=== PATIENT | female | born 1985 | race Caucasian/White ===

== ENCOUNTER → 2023-10-01 08:08 | Outpatient (REF) | payer BC, SELFPAY | LOC: PNTC 08:08 | PROVIDERS: ATTENDING PHYSICIAN Obstetrics & Gynecology | DX: O99.210 Obesity complicating pregnancy, unspecified trimester (principal); O09.519 Supervision of elderly primigravida, unspecified trimester; O35.5XX0 Maternal care for (suspected) damage to fetus by drugs, not applicable or unspecified | CPT/HCPCS: 76811 ==

== ENCOUNTER → 2023-11-26 09:11 | Outpatient (REF) | payer BC, SELFPAY | LOC: PNTC 09:11 | PROVIDERS: ATTENDING PHYSICIAN Obstetrics & Gynecology | DX: O99.210 Obesity complicating pregnancy, unspecified trimester (principal); O35.5XX0 Maternal care for (suspected) damage to fetus by drugs, not applicable or unspecified | CPT/HCPCS: 76816 ==

== ENCOUNTER → 2024-01-07 08:39 | Outpatient (REF) | payer BC, SELFPAY | LOC: PNTC 08:39 | PROVIDERS: ATTENDING PHYSICIAN Obstetrics & Gynecology | DX: O99.210 Obesity complicating pregnancy, unspecified trimester (principal); O35.5XX0 Maternal care for (suspected) damage to fetus by drugs, not applicable or unspecified | CPT/HCPCS: 59025; 76816 ==

== ENCOUNTER → 2024-01-14 07:29 | Outpatient (REF) | payer BC, SELFPAY | LOC: PNTC 07:29 | PROVIDERS: ATTENDING PHYSICIAN Obstetrics & Gynecology | DX: O99.210 Obesity complicating pregnancy, unspecified trimester (principal); O09.529 Supervision of elderly multigravida, unspecified trimester | CPT/HCPCS: 59025; 76815 ==

== ENCOUNTER → 2024-01-21 13:35 | Outpatient (REF) | payer BC, SELFPAY | LOC: PNTC 13:35 | PROVIDERS: ATTENDING PHYSICIAN Obstetrics & Gynecology | DX: O99.210 Obesity complicating pregnancy, unspecified trimester (principal); O09.519 Supervision of elderly primigravida, unspecified trimester | CPT/HCPCS: 59025; 76815 ==

== ENCOUNTER → 2024-01-28 08:00 | Outpatient (REF) | payer BC, SELFPAY | LOC: PNTC 08:00 | PROVIDERS: ATTENDING PHYSICIAN Obstetrics & Gynecology | DX: O09.519 Supervision of elderly primigravida, unspecified trimester (principal); O99.210 Obesity complicating pregnancy, unspecified trimester | CPT/HCPCS: 59025; 76815 ==

== ENCOUNTER → 2024-02-04 08:01 | Outpatient (REF) | payer BC, SELFPAY | LOC: PNTC 08:01 | PROVIDERS: ATTENDING PHYSICIAN Obstetrics & Gynecology | DX: O09.519 Supervision of elderly primigravida, unspecified trimester (principal); O09.219 Supervision of pregnancy with history of pre-term labor, unspecified trimester | CPT/HCPCS: 59025; 76816 ==

== ENCOUNTER → 2024-02-11 07:59 | Outpatient (REF) | payer BC, SELFPAY | LOC: PNTC 07:59 | PROVIDERS: ATTENDING PHYSICIAN Obstetrics & Gynecology | DX: O99.210 Obesity complicating pregnancy, unspecified trimester (principal); O09.519 Supervision of elderly primigravida, unspecified trimester | CPT/HCPCS: 59025; 76815 ==

== ENCOUNTER 2024-02-15 17:47 | Observation (INO) | payer BC, SELFPAY ==
[2024-02-15 17:55] VITALS: BP 143/86; BMI 40.8
== END 2024-02-15 18:48 | disposition home or self-care (01) ==
LOC: LDRP 17:47
PROVIDERS: ADMITTING PHYSICIAN Obstetrics & Gynecology; FAMILY PHYSICIAN Family Medicine
DX: O36.8130 Decreased fetal movements, third trimester, not applicable or unspecified (principal); Z3A.39 39 weeks gestation of pregnancy
CPT/HCPCS: G0378

== ENCOUNTER → 2024-02-18 09:04 | Outpatient (REF) | payer BC, SELFPAY | LOC: PNTC 09:04 | PROVIDERS: ATTENDING PHYSICIAN Obstetrics & Gynecology | DX: O99.210 Obesity complicating pregnancy, unspecified trimester (principal); O09.519 Supervision of elderly primigravida, unspecified trimester | CPT/HCPCS: 59025; 76815 ==

== ENCOUNTER 2024-02-19 08:31 | Inpatient (IN) | payer BC, SELFPAY ==
[2024-02-19 08:42] VITALS: BP 145/86; BMI 41.4
[2024-02-19] MEDS: CYTOTEC 25 MICROGRAM VAG (11:09)
[2024-02-19 11:18] LABS: % Basophils 0.3 % (0-2); % Eosinophils 1.6 % (0-6); % Immature Granulocytes 0.5 % (0-0.5); % Lymphocytes 17.3 % (20.5-51.1); % Monocytes 5.9 % (1.7-9.3); % Neutrophils 74.4 % (42.2-75.2); Absolute Eosinophils 0.1 10^3/uL (0-0.7); Absolute Lymphocytes 1.3 10^3/uL (1.2-3.4); Absolute Monocytes 0.5 10^3/uL (0.1-0.6); Absolute Neutrophils 5.6 10^3/uL (1.4-6.5); Hemoglobin 10.9 g/dL (12.0-16.0); Mean Corp Hgb Conc. 34.1 g/dL (33.0-37.0); Mean Corpuscular Hgb 28.9 pg (27.0-31.0); Mean Corpuscular Volume 84.9 fL (81.0-99.0); Mean Platelet Volume 9.8 fL (7.4-10.4); Nucleated Red Blood Cells % 0 %; Platelet Count 242 10^3/uL (130-400); Red Blood Cell Count 3.77 10^6/uL (4.20-5.40); Red Cell Dist. Width 14.8 % (11.5-14.5); White Blood Cell Count 7.6 10^3/uL (4.8-10.8)
[2024-02-19] MEDS: CYTOTEC 50 MICROGRAM PO ×3 (15:10→23:18)
[2024-02-20] MEDS: CYTOTEC 50 MICROGRAM PO (02:54)
[2024-02-20] MEDS: MORPHINE SULFATE 2 MG IV ×4 (06:08→17:56)
[2024-02-20] MEDS: CYTOTEC PO ×2 (11:09→14:37)
[2024-02-20] MEDS: LR 1000 IV ×3 (11:09→17:56)
[2024-02-20] MEDS: PITOCIN 30 UNITS/NSS 500 ML IV (11:10)
[2024-02-20] MEDS: FENTANYL/BUPIVACAINE 100 EPIDURAL (19:30)
[2024-02-20] MEDS: SUBLIMAZE 100 MCG EPIDURAL (19:30)
[2024-02-20] MEDS: ZOFRAN 4 MG IV (21:57)
[2024-02-21] MEDS: FENTANYL/BUPIVACAINE 100 EPIDURAL ×2 (02:45→09:46)
[2024-02-21] MEDS: LR 1000 IV (07:00)
[2024-02-21] MEDS: PRENATAL PLUS 1 TABLET PO (12:01)
[2024-02-21] MEDS: MOTRIN 600 MG PO ×2 (12:01→20:43)
[2024-02-21] MEDS: METHERGINE INJECTION 0.200000000000000011 MG IM (12:37)
[2024-02-22] MEDS: MOTRIN 600 MG PO ×2 (04:40→12:25)
[2024-02-22 04:56] LABS: Hematocrit 24.8 % (37.0-47.0); Hemoglobin 8.7 g/dL (12.0-16.0)
[2024-02-22] MEDS: TYLENOL 650 MG PO (06:04)
[2024-02-22] MEDS: SENOKOT-S 1 TABLET PO (12:25)
[2024-02-22] MEDS: PRENATAL PLUS PO (12:26)
[2024-02-22] MEDS: FEOSOL 325 MG PO (20:18)
[2024-02-23] MEDS: FEOSOL 325 MG PO (08:55)
[2024-02-23] MEDS: SENOKOT-S 1 TABLET PO (08:55)
[2024-02-23] MEDS: PRENATAL PLUS 1 TABLET PO (08:55)
[2024-02-23] MEDS: MOTRIN 600 MG PO (09:02)
[2024-02-23 09:57] LABS: Syphilis/T. pallidum Ab Reflex Negative (Negative)
== END 2024-02-23 12:30 | disposition home or self-care (01) | DRG 806 ==
LOC: LDRP 08:31
PROVIDERS: Obstetrics & Gynecology; ADMITTING PHYSICIAN Obstetrics & Gynecology; FAMILY PHYSICIAN Family Medicine
PROC: 3E033VJ Introduction of Other Hormone into Peripheral Vein, Percutaneous Approach (ICD-10-PCS; 2024-02-19)
PROC: 3E0P7VZ Introduction of Hormone into Female Reproductive, Via Natural or Artificial Opening (ICD-10-PCS; 2024-02-19)
PROC: 10907ZC Drainage of Amniotic Fluid, Therapeutic from Products of Conception, Via Natural or Artificial Opening (ICD-10-PCS; 2024-02-20)
PROC: 0UQMXZZ Repair Vulva, External Approach (ICD-10-PCS; 2024-02-21)
PROC: 10E0XZZ Delivery of Products of Conception, External Approach (ICD-10-PCS; 2024-02-21)
DX: O48.0 Post-term pregnancy (principal); O72.2 Delayed and secondary postpartum hemorrhage; Z37.0 Single live birth; Z3A.40 40 weeks gestation of pregnancy; O99.344 Other mental disorders complicating childbirth; F41.9 Anxiety disorder, unspecified; F32.A Depression, unspecified; J45.990 Exercise induced bronchospasm; M41.9 Scoliosis, unspecified; Z82.49 Family history of ischemic heart disease and other diseases of the circulatory system; Z83.3 Family history of diabetes mellitus; Z80.3 Family history of malignant neoplasm of breast; O70.0 First degree perineal laceration during delivery; O90.81 Anemia of the puerperium; D64.9 Anemia, unspecified
CPT/HCPCS: 88307; 36415; 85014; 85018; 85025; 86780; 86850; 86900; 86901

== ENCOUNTER 2024-02-26 15:37 | Inpatient (IN) | payer BC, SELFPAY ==
[2024-02-26] VITALS (7 sets, daily range): BP systolic 150–178; BP diastolic 86–98; BMI 38.4
--- NOTE | 2024-02-26 11:52 | ED.GENMED ---
History of Present Illness
<Crista Couch PA-C - Last Filed: 02/26/24 18:57>
General
Chief Complaint: Breathing Problem
Source: patient
Exam Limitations: none
Time Seen by Provider: 02/26/24 11:49
Nursing documentation reviewed up to this point in time: agreed with
History of Present Illness
History of Present Illness:
This is a 38 y/o female who was 5 days vaginal delivery with a PMH of exercise-induced asthma who is presenting emergency department today with concerns of shortness of breath. Patient states that she did experience some shortness
of breath during her but states that it would resolve with rest when she had at this time, she noticed that it seemed a lot worse and would not resolve on its own. This started 2 days ago. Patient states that she has also noticed
swelling in her legs bilaterally which also seems worse with swelling and she is having . She called her OB who states that the swelling she has now as expected however she did express to her that she is complaining of shortness of breath
and she is advised to report to emergency department.
Patient follows with Dr. Roberto for her OBGYN care. Patient does have a history of asthma and has had tried albuterol inhaler for the symptoms with no relief. Patient denies any claudication, any pain or redness in her legs. Patient states that
there were no complications during her other than the passage of some large clots which required heparin. Patient is on no blood thinning medications currently. Patient states that she also passed a large clot yesterday which she states that
was the size of a lemon, but she called her OB who said this was normal. Patient denies any lightheadedness, dizziness, chest pain, syncopal episodes. Patient denies any palpitations.
Past History
<Crista Couch PA-C - Last Filed: 02/26/24 18:57>
Past History
ED Past Medical History: None
ED Past Surgical History: Other (Rhinoplasty)
Social History
Tobacco: Non-smoker
Alcohol: Occasional
Personal: Single
Living: with family
Employment: Employed
Family History
Family History: Other (Noncontributory)
Review of Systems
<Crista Couch PA-C - Last Filed: 02/26/24 18:57>
Review of Systems
All Other Systems: ROS reviewed and negative except as documented in HPI and ROS
Phy Exam
<Crista Couch PA-C - Last Filed: 02/26/24 18:57>
Physical Exam
Physical Exam:
General: Patient is well appearing and in no acute distress; non-toxic
Skin: Warm and dry, no rashes or lesions
Head: Normocephalic, atraumatic
Eyes: Sclera non-icteric. EOMs intact. PERRLA.
Cardiac: Regular rate and rhythm, no murmurs
Peripheral Vascular: Lower extremity swelling noted bilaterally with 2+ dorsalis pedis pulses and posterior tibial pulses bilaterally
Pulm: Tachypnea noted, left sided crackles noted on exam
Abdomen: No abdominal tenderness to palpation
Neuro: CN II-XII intact, no focal neurologic deficits.
Psychiatric: Appropriate mood and affect.
Scores
<Crista Couch PA-C - Last Filed: 02/26/24 18:57>
PERC Rule Criteria
Age <50 years: No
HR <100 bpm: Yes
Room air oxygen sat >94%: Yes
History of DVT or PE: No
Recent trauma or surgery: No
Hemoptysis: No
Exogenous estrogen: No
Clinical signs suggestive of DVT: No
: No
Considered low risk for PE: No
PERC Score: 2
PE can be excluded by PERC: No
<Zelalem De Luna MD - Last Filed: 02/26/24 13:34>
PERC Rule Criteria
PERC Score: 2
PE can be excluded by PERC: No
Course
<Crista Couch PA-C - Last Filed: 02/26/24 18:57>
Orders/Labs/Results
Orders:
Orders
02/26/24 11:55
EKG [Electrocardiogram (*1)] Urgent
Reason for Study: Shortness of Breath
EKG- Treatment ONCE
02/26/24 11:57
Basic Metabolic Panel Urgent
Complete Blood Count/With Diff Urgent
NT-proBNP Urgent
Comment: ADD
02/26/24 12:17
CR Chest - 2 Views Urgent
Comment:
Reason For Exam: shortness of breath
02/26/24 13:09
Add On- LAB Urgent
Tests Added?: pro-bnp
02/26/24 13:10
Add On- LAB Urgent
Tests Added?: troponin
02/26/24 13:18
Furosemide [Lasix] 20 mg IV NOW STA
02/26/24 13:21
Sjodq-Izkr-Ednvhzc Urgent
Troponin I Urgent
02/26/24 13:23
Echo 2D MMode Color/Doppler Routine
Reason for Study: SOB S/P vaginal delivery
02/26/24 13:32
COVID-19 Antigen Urgent
Source: Nasal Swab
02/26/24 13:47
Urinalysis Reflex To Culture Urgent
Date Specimen was Collected: 02/26/24
Time Specimen was Collected: 13:46
Urine Microscopic Reflex Cult Urgent
Urine Culture Urgent
TOÑA Source: U
Specimen Description:
Date Specimen was Collected: 02/26/24
Time Specimen was Collected: 13:46
Abnormal Lab Results
02/26/24 02/26/24 02/26/24
11:57 13:21 13:47
RBC 2.79 L 10^6/uL
(4.20-5.40)
Hgb 8.0 L g/dL
(12.0-16.0)
Hct 24.4 L %
(37.0-47.0)
MCHC 32.8 L g/dL
(33.0-37.0)
RDW 14.7 H %
(11.5-14.5)
Abs Immat Gran (auto) 0.2 H 10^3/uL
(0-0.05)
Absolute Neuts (auto) 8.1 H 10^3/uL
(1.4-6.5)
Absolute Lymphs (auto) 1.1 L 10^3/uL
(1.2-3.4)
Immature Gran % 1.7 H %
(0-0.5)
Neutrophils % 81.8 H %
(42.2-75.2)
Lymphocytes % 11.3 L %
(20.5-51.1)
Chloride 108 H mmol/L
(98-107)
Creatinine 0.5 L mg/dL
(0.6-1.0)
Glucose 102 H mg/dl
(70-99)
AST 46 H U/L
(14-36)
ALT 39 H U/L
(0-35)
Total Protein 5.5 L g/dl
(6.3-8.2)
Albumin 3.2 L g/dl
(3.5-5.0)
Ur Occult Blood Reflex 4+ A
(Negative)
Leukocyte Esterase Rfl 1+ A
(Negative)
Urine RBC 7-10 A /HPF
(0-2)
Urine WBC (Reflex) 11-15 A /HPF
(0-5)
02/26/24 11:57
02/26/24 11:57
Vital Signs
Initial and Last Documented VS:
Initial Vital Signs
Temp Pulse Resp BP Pulse Ox
98.9 F 78 18 178/95 98
02/26/24 11:36 02/26/24 11:36 02/26/24 11:36 02/26/24 11:36 02/26/24 11:36
Last Documented Vital Signs
Temp Pulse Resp BP Pulse Ox
99.6 F 95 18 162/86 94
02/26/24 15:43 02/26/24 15:43 02/26/24 15:43 02/26/24 15:43 02/26/24 14:52
<Zelalem De Luna MD - Last Filed: 02/26/24 13:34>
Orders/Labs/Results
Orders:
Orders
02/26/24 11:55
EKG [Electrocardiogram (*1)] Urgent
Reason for Study: Shortness of Breath
EKG- Treatment ONCE
02/26/24 11:57
Basic Metabolic Panel Urgent
Complete Blood Count/With Diff Urgent
NT-proBNP Urgent
Comment: ADD
02/26/24 12:17
CR Chest - 2 Views Urgent
Comment:
Reason For Exam: shortness of breath
02/26/24 13:09
Add On- LAB Urgent
Tests Added?: pro-bnp
02/26/24 13:10
Add On- LAB Urgent
Tests Added?: troponin
02/26/24 13:18
Furosemide [Lasix] 20 mg IV NOW STA
02/26/24 13:21
Bwtgf-Bfdm-Ihfverb Urgent
Troponin I Urgent
02/26/24 13:23
Echo 2D MMode Color/Doppler Routine
Reason for Study: SOB S/P vaginal delivery
02/26/24 13:32
COVID-19 Antigen Urgent
Source: Nasal Swab
02/26/24 13:47
Urinalysis Reflex To Culture Urgent
Date Specimen was Collected: 02/26/24
Time Specimen was Collected: 13:46
Urine Microscopic Reflex Cult Urgent
Urine Culture Urgent
TOÑ[place] Source: U
Specimen Description:
Date Specimen was Collected: 02/26/24
Time Specimen was Collected: 13:46
Abnormal Lab Results
02/26/24 02/26/24 02/26/24
11:57 13:21 13:47
RBC 2.79 L 10^6/uL
(4.20-5.40)
Hgb 8.0 L g/dL
(12.0-16.0)
Hct 24.4 L %
(37.0-47.0)
MCHC 32.8 L g/dL
(33.0-37.0)
RDW 14.7 H %
(11.5-14.5)
Abs Immat Gran (auto) 0.2 H 10^3/uL
(0-0.05)
Absolute Neuts (auto) 8.1 H 10^3/uL
(1.4-6.5)
Absolute Lymphs (auto) 1.1 L 10^3/uL
(1.2-3.4)
Immature Gran % 1.7 H %
(0-0.5)
Neutrophils % 81.8 H %
(42.2-75.2)
Lymphocytes % 11.3 L %
(20.5-51.1)
Chloride 108 H mmol/L
(98-107)
Creatinine 0.5 L mg/dL
(0.6-1.0)
Glucose 102 H mg/dl
(70-99)
AST 46 H U/L
(14-36)
ALT 39 H U/L
(0-35)
Total Protein 5.5 L g/dl
(6.3-8.2)
Albumin 3.2 L g/dl
(3.5-5.0)
Ur Occult Blood Reflex 4+ A
(Negative)
Leukocyte Esterase Rfl 1+ A
(Negative)
Urine RBC 7-10 A /HPF
(0-2)
Urine WBC (Reflex) 11-15 A /HPF
(0-5)
02/26/24 11:57
02/26/24 11:57
Vital Signs
Initial and Last Documented VS:
Initial Vital Signs
Temp Pulse Resp BP Pulse Ox
98.9 F 78 18 178/95 98
02/26/24 11:36 02/26/24 11:36 02/26/24 11:36 02/26/24 11:36 02/26/24 11:36
Last Documented Vital Signs
Temp Pulse Resp BP Pulse Ox
99.6 F 95 18 162/86 94
02/26/24 15:43 02/26/24 15:43 02/26/24 15:43 02/26/24 15:43 02/26/24 14:52
Zhaolt;Crista Couch PA-C - Last Filed: 02/26/24 18:57>
MDM/Problems Addressed
Differential Diagnosis Includes:
ddx include pulmonary embolism, post cardiomyopathy, anemia
MDM/Problems Addressed:
Shortness of breath:
This is a 38 y/o female who was 5 days vaginal delivery with a PMH of exercise-induced asthma who is presenting emergency department today with concerns of shortness of breath. Patient states that she did experience some shortness
of breath during her but states that it would resolve with rest when she had at this time, she noticed that it seemed a lot worse and would not resolve on its own. This started 2 days ago. Also notes worsening swelling of bilateral lower
extremities. Here in emergency department, her blood pressure is elevated, patient no history of peripartum hypertension. Takes no medication for blood pressure. Patient denies any headaches, nausea, vomiting. On physical exam, she does have
diffuse crackles. Her chest x-ray seems consistent with pulmonary edema/fluid overload. She was given Lasix. Cardiology and MIXER LEVER OPERATOR was urgently consulted. Lab work demonstrates anemia, no proteinuria. Working differentials for this patient
include cardiomyopathy vs post preeclampsia. Patient excepted for admission by her hearing aid assistant Dr. Roberto. Cardiology will see in consult, echocardiogram ordered
Chronic conditions affecting care:
exercised induced asthma
Acute Exacerbation and/or Progression of Chronic Illness:
n/a
<Crista Couch PA-C - Last Filed: 02/26/24 18:57>
*Pulse Oximetry
Patient hypoxic: no
*EKG
Interpreted by ED Provider?: Yes
EKG Intrepretation Date: 02/26/24
Comparison EKG: no changes
Heart Rate: 84
Rate: normal
Rhythm: sinus
[place]: normal axis
Interval: normal interval, normal QT interval and normal UT interval
*Waffle Machine Operator Interpretation
Rate: normal
Interpretation: normal
Heart Rate: 85
Rhythm: sinus
*Critical Care Note
Total Time (30-74mins, 75-104mins- exclusive of procedures): Not Applicable
Data Reviewed
Review of Other/Old Records Reveals: Records (Reviewed ER physician documentation from 09/02/2014) and Discharge Summary (Reviewed L&D discharge summary)
Source: patient and records
<Crista Couch PA-C - Last Filed: 02/26/24 18:57>
Patient Management
Escalation/DeEscalation of care consider admission/obs:
Patient referred for admission, case discussed with my attending Dr. De Luna
ED Attending Note
<LIVAN Yip Last Filed: 02/26/24 18:57>
-
Portions of this chart may have been created with voice recognition software.� Occasional wrong word or��sound alike� substitutions may have occurred due to the inherent limitations of voice recognition software.
<Zelalem De Luna MD - Last Filed: 02/26/24 13:34>
ED Attending Note
Patient seen and examined by attending physician: Yes
I performed the substantive portion of visit, reviewed & personally made and approve the management plan that is documented in note by myself or DIETER.: Yes
ED Attending Note:
1320.... , recent vaginal delivery 5 days ago uncomplicated. Presents with shortness of breath that started 2 nights ago. No pleuritic pain some back pain but she has been having some back pain. No fever cough or infectious symptoms.
Shortness of breath was worse last night. Also notes some increased leg edema.
On exam patient is nontoxic in no distress. Warm and dry perfusing well. Pulse ox is running 92 to 94% however.
Lungs with some bilateral crackles. No respiratory distress no wheezing or rhonchi. Heart regular rate and rhythm no murmur. She has some mild bilateral lower extremity pitting edema.
Blood pressures 150/88 153/93. During her delivery she was running 145/86. Mild elevation from this level.
Differential would include myocarditis/preeclampsia/ related CHF. Pulmonary emboli on the list but she clearly has crackles and an abnormal chest x-ray which makes this less likely. Discussed with MIXER LEVER OPERATOR and cardiology. Echocardiogram
ordered. Will give a starting dose of Lasix. Warrants admission. Discussed with patient. Urinalysis pending. LFTs pending
Discharge Plan
Departure
Patient Disposition: LDRP
Date of Disposition: 02/26/24
Time of Disposition: 15:14
Presentation/result/management discussed w/ accepting MD/: Dr. Roberto
Discharge Problem:
Pre-eclampsia in period
Interventions
Interventions:
*Risk Screen - Suicide Last Done: 02/26/24 11:58
*General Assessment Last Done: 02/26/24 11:36
*Neglect/Abuse Screening Last Done: 02/26/24 11:58
ED- Fall Risk Assessment Last Done: 02/26/24 15:10
*ED COVID-19 Vaccine History Last Done: 02/26/24 11:36
*Nursing Disposition Last Done: 02/26/24 15:23
ED- Cardiac Assessment Last Done: 02/26/24 12:00
ED- Pulmonary Assessment Last Done: 02/26/24 12:00
Discharge Date and Time
Discharge Date/Time: 02/26/24 15:24
[2024-02-26 12:15] LABS: % Basophils 0.3 % (0-2); % Eosinophils 1.3 % (0-6); % Immature Granulocytes 1.7 % (0-0.5); % Lymphocytes 11.3 % (20.5-51.1); % Monocytes 3.6 % (1.7-9.3); % Neutrophils 81.8 % (42.2-75.2); Absolute Eosinophils 0.1 10^3/uL (0-0.7); Absolute Immature Granulocytes 0.2 10^3/uL (0-0.05); Absolute Lymphocytes 1.1 10^3/uL (1.2-3.4); Absolute Monocytes 0.4 10^3/uL (0.1-0.6); Absolute Neutrophils 8.1 10^3/uL (1.4-6.5); Hematocrit 24.4 % (37.0-47.0); Mean Corp Hgb Conc. 32.8 g/dL (33.0-37.0); Mean Corpuscular Hgb 28.7 pg (27.0-31.0); Mean Corpuscular Volume 87.5 fL (81.0-99.0); Mean Platelet Volume 9.3 fL (7.4-10.4); Nucleated Red Blood Cells % 0.4 %; Platelet Count 279 10^3/uL (130-400); Red Blood Cell Count 2.79 10^6/uL (4.20-5.40); Red Cell Dist. Width 14.7 % (11.5-14.5); White Blood Cell Count 9.9 10^3/uL (4.8-10.8)
[2024-02-26 12:24] LABS: Blood Urea Nitrogen 13 mg/dl (7-17); Calcium 8.6 mg/dl (8.4-10.2); Carbon Dioxide 22 mmol/L (22-30); Chloride 108 mmol/L (98-107); Glucose 102 mg/dl (70-99); Sodium 136 mmol/L (135-145); eGFR > 60.00
[2024-02-26] MEDS: LASIX 20 MG IV (13:37)
[2024-02-26 13:42] LABS: ALT (SGPT) 39 U/L (0-35); AST (SGOT) 46 U/L (14-36); Albumin 3.2 g/dl (3.5-5.0); Alkaline Phosphatase 106 U/L (38-126); Direct Bilirubin 0.2 mg/dl (0.0-0.4); Total Bilirubin 0.2 mg/dl (0.2-1.3); Total Protein 5.5 g/dl (6.3-8.2)
[2024-02-26 13:52] LABS: Troponin I < 0.012 ng/ml
[2024-02-26 14:03] LABS: COVID-19 Antigen Negative (Negative)
--- NOTE | 2024-02-26 14:11 | CON.CAR ---
Addendum entered and electronically signed by Ravi Ferrera MD 02/26/24 17:34:
38 yo female s/p vaginal delivery 02/21/24. Presents with SOB, edema, elevated BP. Evidence of volume overload, and given IV lasix. Exam with RRR, no murmurs, 1+ LE edema. TnI <0.012. EKG with NSR. Echo with EF 55%, mild/moderate MR.
Discussed with OB. Presentation seems consistent with post pre-eclampsia. She is currently receiving IV Mg. BP looks better.
OB team will call us back if her BP trends back up, and we can advise on starting labetalol.
Original Note:
Consultation
Consultation Request
Date/Time Consultation Requested: 02/26/2024 13:40
Date/Time Consultation Performed: 02/26/2024 14:10
Requesting Provider: Dr. De Luna
Performing Provider: MARÍA ELENA Sullivan for Dr. Ferrera
Reason for Consultation: Concern for congestive heart failure
Medical History
-
Chief Complaint: Shortness of breath
History of Present Illness:
Jaylene Phillips is a 38 year old female with asthma presents with shortness of breath status post vaginal delivery 02/21/2024. She endorses associated shortness of breath. It started on Thursday evening. It get worse with exertion and improves
with rest. She also states it is worse sitting up and improves laying down. She is having no chest pain. COVID-19 negative. Hemoglobin 8.0. No leukocytosis. Troponin negative. EKG stable. ProBNP stable. Cardiology was consulted with concern for
congestive heart failure.
Past Medical History
Past Medical History: Asthma
Past Surgical History: Other (Rhinoplasty)
Social History
Tobacco: Non-Smoker
Alcohol: None
Drug: None
Family History
Family History: Reviewed & Not Pertinent
Allergies / Home Medications
Allergy/AdvReac Type Severity Reaction Status Date / Time
No Known Allergies Allergy Verified 02/26/24 11:40
�Medication �Instructions �Recorded �Confirmed �Type
loratadine 10 mg tablet (Claritin) 10 mg PO DAILY Allergies 02/15/24 02/19/24 History
prenat.vits,martell,ues-ruxv-ruwqv 1 tab PO 1XD Supplement 02/15/24 02/19/24 History
valacyclovir 1 gram tablet 1,000 mg PO DAILY Infection 02/15/24 02/19/24 History
(Valtrex)
acetaminophen 325 mg tablet 650 mg (2 x 325 mg) PO Q4HPRN PRN 02/23/24 Rx
mild pain #0 tabs
ferrous sulfate 325 mg (65 mg 325 mg PO BID #0 tabs 02/23/24 Rx
iron) tablet (FeroSul)
ibuprofen 600 mg tablet 600 mg PO Q6HPRN PRN moderate 02/23/24 Rx
pain/cramps #30 tabs
sennosides 8.6 mg-docusate sodium 1 tab PO DAILYPRN PRN constipation 02/23/24 Rx
50 mg tablet (Stool #0 tabs
Softener-Laxative)
Review of Systems
-
History Source: Patient
All other systems: Negative unless noted
Constitutional: Fatigue
EENT: No Symptoms
Respiratory: Trouble Breathing
Cardiac: No Symptoms
Abdomen/GI: No Symptoms
: No Symptoms
Skin: No Symptoms
Neurological: No Symptoms
Endocrine: No Symptoms
Hematologic/Lymphatic: Bleeding (vaginal)
Physical Exam
Vital Signs
Temp Pulse Resp BP Pulse Ox
98.9 F 73 27 150/88 95
02/26/24 11:36 02/26/24 13:00 02/26/24 13:00 02/26/24 13:00 02/26/24 13:00
Lab Results
02/26/24 11:57
02/26/24 11:57
Troponin I < 0.012 ng/ml 02/26/24 13:21
Physical Exam
General: Well Developed, Well Nourished, No Apparent Distress and Comfortable
HEENT: Normocephalic, Anicteric and Moist Mucous Membranes
Respiratory: Clear
Cardiac: S1/S2, Regular Rhythm and Peripheral Edema (+2 pitting pedal edema)
Breast: Deferred by me
GI: Soft, Non Tender, Non Distended and Normal Bowel Sounds
Rectal: Deferred by Provider
Genito-urinary: No Costovertebral Tender
Musculoskeletal: No Clubbing, No Cyanosis and No Edema
Skin: Warm and Dry
Hematologic/Lymphatic: No Lymphadenopathy
Psych: Calm
Impression / Plan
-
Shortness of breath with edema and eleavted BP
-Denies CP, dizziness
-Troponin < 0.012
-CXR with PNA per radiologist but no fever nor leukocytosis
-S/P furosemide 20mg IV, await proBNP
-Ddx: symptomatic post anemia (H/H 8.0/24.4), PE (no tachycardia nor hypoxia), HFpEF (pedal edema) but appears to be most consistent with pre-eclampsia
Post anemia, passed some clots yesterday
S/P vaginal delivery 02/21/2024 without complications
Mild asthma, exercise induced
Depression, weaned off Trintellix during
Data Reviewed
-
EKG: Report Reviewed by me (Sinus rhythm, short CO, rate 84)
Radiology: Report Reviewed by me (CXR: Multifocal pneumonia.)
Labs: Labs Reviewed by me
Old Records: Reviewed
[2024-02-26 14:15] LABS: Urine Albumin Negative (Neg - Trace); Urine Bilirubin Negative (Negative); Urine Character Clear (Clear); Urine Color Straw; Urine Glucose Negative (Negative); Urine Ketone Negative (Negative); Urine Leukocyte 1+ (Negative); Urine Nitrite Negative (Negative); Urine Occult Blood 4+ (Negative); Urine Urobilinogen Negative (Neg - 1+)
[2024-02-26 14:46] LABS: Urine Amorphous Seen
[2024-02-26 15:07] LABS: NT-proBNP 1410 pg/ml
[2024-02-26] MEDS: MAGNESIUM SULFATE 100 IV (16:35)
[2024-02-26] MEDS: LR 1000 IV (16:36)
[2024-02-26] MEDS: MAGNESIUM SULFATE 40 GRAM 1000 IV (16:36)
[2024-02-26] MEDS: TYLENOL 650 MG PO (21:04)
[2024-02-26] MEDS: FEOSOL 325 MG PO (21:04)
[2024-02-26] MEDS: MOTRIN 600 MG PO (21:04)
[2024-02-27 03:34] LABS: % Basophils 0.5 % (0-2); % Eosinophils 1.8 % (0-6); % Immature Granulocytes 3.3 % (0-0.5); % Lymphocytes 16.6 % (20.5-51.1); % Monocytes 4.4 % (1.7-9.3); % Neutrophils 73.4 % (42.2-75.2); Absolute Basophils 0.1 10^3/uL (0-0.2); Absolute Eosinophils 0.2 10^3/uL (0-0.7); Absolute Immature Granulocytes 0.4 10^3/uL (0-0.05); Absolute Lymphocytes 1.7 10^3/uL (1.2-3.4); Absolute Monocytes 0.5 10^3/uL (0.1-0.6); Absolute Neutrophils 7.7 10^3/uL (1.4-6.5); Hematocrit 26.6 % (37.0-47.0); Hemoglobin 9.1 g/dL (12.0-16.0); Mean Corp Hgb Conc. 34.2 g/dL (33.0-37.0); Mean Corpuscular Hgb 29.1 pg (27.0-31.0); Mean Platelet Volume 8.9 fL (7.4-10.4); Nucleated Red Blood Cells % 0.5 %; Platelet Count 339 10^3/uL (130-400); Red Blood Cell Count 3.13 10^6/uL (4.20-5.40); Red Cell Dist. Width 15.1 % (11.5-14.5); White Blood Cell Count 10.5 10^3/uL (4.8-10.8)
[2024-02-27 03:47] LABS: ALT (SGPT) 53 U/L (0-35); AST (SGOT) 52 U/L (14-36)
[2024-02-27] MEDS: LR 1000 IV (05:44)
[2024-02-27] MEDS: TRANDATE 20 MG IV (05:45)
[2024-02-27] MEDS: TRANDATE 100 MG PO ×2 (07:53→20:04)
[2024-02-27] MEDS: SENOKOT-S 1 TABLET PO ×2 (07:53→20:03)
[2024-02-27] MEDS: FEOSOL 325 MG PO ×2 (07:53→20:03)
[2024-02-27] MEDS: TYLENOL 650 MG PO ×2 (07:53→15:49)
[2024-02-27 08:15] LABS: Magnesium 5.4 mg/dl (1.6-2.3)
[2024-02-27] MEDS: MAGNESIUM SULFATE 40 GRAM 1000 IV (11:33)
--- NOTE | 2024-02-27 14:15 | W.PN.CD ---
Addendum entered and electronically signed by Roman Rose MD 02/27/24 14:34:
Echo report not available but apparently it was done yesterday and was good.
I looked at echo report and images. LV preserved, mild-mod MR, IVC top normal at 21mm. PASP looked fine, LVEF read as normal but to my eye it is low normal at 50%. Diastolic parameters looked normal.
Original Note:
Today's Communication / Plan
-
Diuresis
Follow BMP
Consider predischarge CXR and f/u pBNP
Incentive spirometry
Echo Thursday
Impression / Plan
-
Dyspnea in setting of preeclampsia
- pBNP, CXR, and CT are c/w heart failure
- Will provide more diuresis
- Atelectasis could contribute to dyspnea
- Plan for echo
- Preeclampsia can be associated with diastolic dysfunction
Post anemia, passed some clots yesterday
S/P vaginal delivery 02/21/2024 without complications
Mild asthma, exercise induced
Depression, weaned off Trintellix during
Physical Exam
Vital Signs/Labs
Vital Signs
Temp Pulse Resp BP Pulse Ox
99.6 F 79 18 125/77 94
02/26/24 15:43 02/27/24 07:53 02/26/24 15:43 02/27/24 07:53 02/26/24 14:52
02/26/24 02/27/24 02/28/24
06:59 06:59 06:59
Actual Weight 95.254 kg
02/27/24 03:23
02/26/24 11:57
Magnesium 5.4 mg/dl (1.6-2.3) H* 02/27/24 03:23
02/26/24
11:57
Syy-O-Tiqrcdbwinp Pept 1410
LAB Results
02/26/24
13:21
Troponin I < 0.012
Physical Exam
Constitutional: No acute distress
EENT: Anicteric
Cardiovascular: Rhythm & rate is regular and Pedal edema is absent
Respiratory: Respiratory effort normal and Lungs clear to auscul.
GI: Soft and Distention absent
Neuro/Psych: AO x 3
Data Reviewed
-
Date of Service: February 27, 2024
--- NOTE | 2024-02-27 15:00 | PTCARENOTE ---
Asked to place pt on Tele pack. Tele pack T3 placed on pt. Monitor NSR. Pt is alert and oriented. Denies shortness of breath at rest but when she sits up in bed and takes a deep breath admits to feeling winded. Also admits to some midsternal chest
discomfort with sitting up in bed. Breath sounds -initially heard some crackles at the bases that cleared once pt took a deep breath, sl decreased at the bases. Pt on Room Air. Pt informed to let nursing staff know if symptoms worsen. Will remote
tele monitor pt.
[2024-02-27 15:07] LABS: Blood Urea Nitrogen 8 mg/dl (7-17); Carbon Dioxide 28 mmol/L (22-30); Chloride 103 mmol/L (98-107); Estimated Creatinine Clearance > 125 ml/min; Glucose 102 mg/dl (70-99); Potassium 4.2 mmol/L (3.5-5.1); Sodium 136 mmol/L (135-145); eGFR > 60.00
[2024-02-27] MEDS: LASIX 20 MG IV (15:23)
[2024-02-27] MEDS: FLUSH (NSS) 2 FLUSH IV (15:25)
[2024-02-27] MEDS: FLUSH (NSS) 1 FLUSH IV (16:35)
--- NOTE | 2024-02-27 21:17 | PTCARENOTE ---
Rounded on patient in LDRP, Pt is Aox3, VSS, NSR/ST on monitor, minimal chest pain with deep inspiration but has been resolving since earlier.
[2024-02-28 04:45] LABS: Hematocrit 23.6 % (37.0-47.0); Hemoglobin 8.2 g/dL (12.0-16.0); Mean Corp Hgb Conc. 34.7 g/dL (33.0-37.0); Mean Corpuscular Hgb 29.2 pg (27.0-31.0); Mean Platelet Volume 8.8 fL (7.4-10.4); Platelet Count 331 10^3/uL (130-400); Red Blood Cell Count 2.81 10^6/uL (4.20-5.40); Red Cell Dist. Width 14.9 % (11.5-14.5); White Blood Cell Count 7.4 10^3/uL (4.8-10.8)
[2024-02-28 05:12] LABS: ALT (SGPT) 37 U/L (0-35); AST (SGOT) 31 U/L (14-36); Albumin 3.2 g/dl (3.5-5.0); Alkaline Phosphatase 112 U/L (38-126); Blood Urea Nitrogen 11 mg/dl (7-17); Calcium 7.7 mg/dl (8.4-10.2); Carbon Dioxide 24 mmol/L (22-30); Chloride 104 mmol/L (98-107); Estimated Creatinine Clearance > 125 ml/min; Glucose 101 mg/dl (70-99); Potassium 4.1 mmol/L (3.5-5.1); Sodium 136 mmol/L (135-145); Total Bilirubin 0.3 mg/dl (0.2-1.3); Total Protein 5.6 g/dl (6.3-8.2); eGFR > 60.00
--- NOTE | 2024-02-28 08:20 | PTCARENOTE ---
rounded on patient- aox3, nsr on monitor. denies chest pain. lungs clear.
[2024-02-28] MEDS: FEOSOL 325 MG PO (08:28)
[2024-02-28] MEDS: PRENATAL PLUS 1 TABLET PO (08:28)
[2024-02-28] MEDS: SENOKOT-S 1 TABLET PO (08:28)
[2024-02-28] MEDS: ZYRTEC 10 MG PO (08:28)
[2024-02-28] MEDS: LASIX IV ×2 (08:29→10:11)
[2024-02-28] MEDS: TRANDATE 100 MG PO (08:33)
--- NOTE | 2024-02-28 16:13 | W.PN.CD ---
Today's Communication / Plan
-
OK for home w/o additional Lasix
F/u with Dr. Ferrera in 1-2 weeks
Agree with home BP checks
Risk for future HTN as she has FHx and preeclampsia
Impression / Plan
-
Dyspnea in setting of preeclampsia
- pBNP, CXR, and CT are c/w heart failure
- Will provide more diuresis. Got Lasix once on 02/25 and once on 02/26 and she feels well today. No CP or dyspnea
- Atelectasis could contribute to dyspnea
- Echo was normal
- Preeclampsia can be associated with diastolic dysfunction
Post anemia, passed some clots yesterday
S/P vaginal delivery 02/21/2024 without complications
Mild asthma, exercise induced
Depression, weaned off Trintellix during
Physical Exam
Vital Signs/Labs
Vital Signs
Temp Pulse Resp BP Pulse Ox
99.6 F 89 18 144/77 94
02/26/24 15:43 02/28/24 08:33 02/26/24 15:43 02/28/24 08:33 02/26/24 14:52
02/27/24 02/28/24 02/29/24
06:59 06:59 06:59
Actual Weight 95.254 kg
02/28/24 04:32
02/28/24 04:31
Magnesium 5.4 mg/dl (1.6-2.3) H* 02/27/24 03:23
02/26/24
11:57
Exz-W-Youhyyblnmw Pept 1410
LAB Results
02/26/24
13:21
Troponin I < 0.012
Physical Exam
Constitutional: No acute distress
EENT: Anicteric
Cardiovascular: Rhythm & rate is regular and Pedal edema is absent
Respiratory: Respiratory effort normal, Lungs clear to auscul. and Crackles Absent
GI: Soft and Distention absent
Neuro/Psych: AO x 3
Data Reviewed
-
Date of Service: February 28, 2024
== END 2024-02-28 12:30 | disposition home or self-care (01) | DRG 776 ==
LOC: LDRP 15:37
PROVIDERS: Emergency Medicine; Internal Medicine Cardiovascular Disease; Obstetrics & Gynecology; Physician Assistant; ADMITTING PHYSICIAN Obstetrics & Gynecology; EMERGENCY PHYSICIAN Emergency Medicine; FAMILY PHYSICIAN Family Medicine
DX: O14.15 Severe pre-eclampsia, complicating the puerperium (principal); O99.215 Obesity complicating the puerperium; O99.345 Other mental disorders complicating the puerperium; F41.9 Anxiety disorder, unspecified; F53.0 Postpartum depression; O12.05 Gestational edema, complicating the puerperium
CPT/HCPCS: 71046; 71275; 80048; 80053; 80076; 81003; 81015; 83735; 83880; 84450; 84460; 84484; 85025; 85027; 87086; 87811; 93005; 93306; 96374; 99285; Q9967

== ENCOUNTER → 2024-05-26 14:32 | Outpatient (REF) | payer BC, SELFPAY | LOC: RAD 14:32 | PROVIDERS: ATTENDING PHYSICIAN Family Medicine | DX: M54.16 Radiculopathy, lumbar region (principal) | CPT/HCPCS: 72110 ==

== ENCOUNTER → 2025-05-10 13:17 | Outpatient (REF) | payer BC, SELFPAY | LOC: PNTC 13:17 | PROVIDERS: ATTENDING PHYSICIAN Obstetrics & Gynecology | DX: Z36.0 Encounter for antenatal screening for chromosomal anomalies (principal); Z36.82 Encounter for antenatal screening for nuchal translucency | CPT/HCPCS: 76801; 76813 ==